=== PATIENT | female | born 1950 | race American Indian/Alaskan Native ===

== ENCOUNTER 2018-09-26 10:32 | Emergency (ER) | payer MEDICARE ==
[2018-09-26] MEDS ORDERED: NACL 0.9% 1000 ML 1,000 ML IV ONE (12:10)
[2018-09-26 12:19] LABS: Basophils % (Auto) 0.6 % (0.0-1.8); Eosinophils # (Auto) 0.2 K/mm3 (0.0-0.4); Eosinophils % (Auto) 4.3 % (0.0-4.3); Hematocrit 33.3 % (30.3-42.9); Hemoglobin 10.6 gm/dl (10.1-14.3); Lymphocytes # (Auto) 0.7 K/mm3 (1.2-5.4); Mean Corpuscular HGB Conc 32 % (30-34); Mean Corpuscular Volume 74 fl (79-97); Monocytes # (Auto) 0.2 K/mm3 (0.0-0.8); Monocytes % (Auto) 4.1 % (0.0-7.3); Platelet Count 214 K/mm3 (140-440); Red Blood Count 4.52 M/mm3 (3.65-5.03); Red Cell Distribution Width 14.4 % (13.2-15.2)
[2018-09-26 12:36] LABS: Alanine Aminotransferase 13 units/L (7-56); BUN/Creatinine Ratio 28; Blood Urea Nitrogen 17 mg/dL (7-17); Calcium 9.2 mg/dL (8.4-10.2); Hemolysis Index 6
--- NOTE | 2018-09-26 12:42 | Emergency Department Report ---
ED N/V/D HPI - General Chief complaint: Nausea/Vomiting/Diarrhea Stated complaint: DIZZY N/V Time Seen by Provider: 09/26/18 12:06 Source: patient, EMS Mode of arrival: Stretcher Limitations: No Limitations - History of Present Illness Initial comments: 68-year-old female presents to ED with nausea, vomiting, dizziness after taking naltrexone. Patient is at [facility] for narcotic abuse. Patient was given naltrexone for the first time today, after which patient reported nausea, vomiting and dizziness. Denies headache, chest pain, shortness of breath, abdominal pain. Patient states yesterday, prior to taking the naltrexone, she was experiencing mild dizziness, sensation of room spinning. MD complaint: nausea, vomiting -: This morning Description of Vomiting: food contents Associated Abdominal Pain: No Consistency: now resolved Improves with: none Worsens with: medication Associated Symptoms: denies other symptoms. denies: chest pain, fever/chills, headaches, shortness of breath - Related Data Previous Rx's Medication Instructions Recorded Last Taken Type Meclizine [Antivert] 25 mg PO TID PRN #20 tablet 09/26/18 Unknown Rx Allergies Allergy/AdvReac Type Severity Reaction Status Date / Time erythromycin base Allergy Unknown Verified 09/26/18 10:54 ED Review of Systems ROS: Stated complaint: DIZZY N/V Other details as noted in HPI Comment: All other systems reviewed and negative Constitutional: denies: chills, fever Respiratory: denies: shortness of breath Cardiovascular: denies: chest pain Gastrointestinal: nausea, vomiting. denies: abdominal pain, diarrhea Neurological: denies: headache ED Past Medical Hx - Past Medical History Previous Medical History?: Yes Hx Hypertension: Yes Hx CVA: Yes Additional medical history: HLD - Surgical History Past Surgical History?: No - Social History Smoking Status: Current Every Day Smoker Substance Use Type: Cocaine - Medications Home Medications: Home Medications Medication Instructions Recorded Confirmed Last Taken Type Meclizine [Antivert] 25 mg PO TID PRN #20 tablet 09/26/18 Unknown Rx ED Physical Exam - General Limitations: No Limitations General appearance: alert, in no apparent distress - Head Head exam: Present: atraumatic, normocephalic - Eye Eye exam: Present: normal appearance - ENT ENT exam: Present: mucous membranes moist - Neck Neck exam: Present: normal inspection - Respiratory Respiratory exam: Present: normal lung sounds bilaterally. Absent: respiratory distress - Cardiovascular Cardiovascular Exam: Present: regular rate, normal rhythm - GI/Abdominal GI/Abdominal exam: Present: soft. Absent: distended, tenderness - Extremities Exam Extremities exam: Present: normal inspection - Neurological Exam Neurological exam: Present: alert, oriented X3, CN II-XII intact, normal gait. Absent: motor sensory deficit - Psychiatric Psychiatric exam: Present: normal affect, normal mood - Skin Skin exam: Present: warm, dry, intact, normal color ED Course Vital Signs 09/26/18 09/26/18 09/26/18 10:45 10:50 12:30 Temperature 97.8 F 98.4 F Pulse Rate 84 60 74 Respiratory 18 18 18 Rate Blood Pressure 112/66 112/63 118/54 [Right] O2 Sat by Pulse 98 100 100 Oximetry 09/26/18 09/26/18 09/26/18 12:42 13:35 16:31 Temperature Pulse Rate 81 63 Respiratory 18 18 18 Rate Blood Pressure 120/54 123/69 [Right] O2 Sat by Pulse 100 100 Oximetry ED Medical Decision Making - Lab Data Result diagrams: 09/26/18 11:56 09/26/18 11:56 - EKG Data -: EKG Interpreted by Or EKG shows normal: axis, intervals, QRS complexes, ST-T waves Rate: normal - EKG Data Interpretation: no acute changes, other (sinus arrythmia) - Radiology Data Radiology results: report reviewed, image reviewed - Medical Decision Making 68-year-old female presented to the ED following an episode of nausea and vomiting after taking naltrexone, which is a known side effect of this medication. However, patient states she did have mild dizziness on yesterday prior to taking the medication. Her exam is normal, finger-nose testing normal, gait is normal. Head CT unremarkable. Patient may possibly have a component of benign positional vertigo that is exacerbated by the naltrexone today. Patient given prescription for meclizine, advised outpatient follow-up. - Differential Diagnosis med side effect, CVA, BPV Critical care attestation.: If time is entered above; I have spent that time in minutes in the direct care of this critically ill patient, excluding procedure time. ED Disposition Clinical Impression: Nausea & vomiting, Dizziness Disposition: DC-01 TO HOME OR SELFCARE Is pt being admited?: No Condition: Stable Instructions: Acute Nausea and Vomiting (ED), Benign Paroxysmal Positional Vertigo (ED) Prescriptions: Meclizine [Antivert] 25 mg PO TID PRN #20 tablet PRN Reason: Vertigo [facility] SPENCER [Primary Care Provider] - 3-5 Days PRIMARY CAREMD [Referring] - 3-5 Days Time of Disposition: 14:11
[2018-09-26 13:33] LABS: Bacteria,Urine 1+ /HPF (Negative); Bilirubin,Urine NEG (Negative); Blood,Urine NEG (Negative); Color,Urine Yellow (Yellow); Mucus,Urine FEW /HPF; Protein,Urine <15 mg/dL mg/dL (Negative)
--- NOTE | 2018-09-26 13:59 | Cat Scan Report ---
CT scan without IV contrast: History: Dizziness. Findings: Ventricles are normal in size and midline in location. Periventricular area of low attenuation suggestive of small vessel ischemic changes failure the liver attenuation is continuous on the right-sided PICC posterior parietal region large area of low attenuation which may be related to associated chronic ischemia. Cortical atrophy. No evidence of acute ischemia. No hemorrhage. No mass. Normal sinuses and visualized mastoid air cells. Impression: No acute intracranial MID findings as detailed above.
[2018-09-26 16:32] VITALS: BP 123/69
== END 2018-09-26 17:23 | disposition home or self-care (01) ==
LOC: ED 10:32
DX: R11.2 Nausea with vomiting, unspecified (principal); R42 Dizziness and giddiness; I10 Essential (primary) hypertension; E78.5 Hyperlipidemia, unspecified; F17.200 Nicotine dependence, unspecified, uncomplicated; F14.10 Cocaine abuse, uncomplicated
CPT/HCPCS: 36415; 70450; 80053; 81001; 84484; 85025; 87076; 87086; 87186; 93005; 93010; 96360; 99284; J7030